=== PATIENT | female | born 1955 | race African-American/Black ===

== ENCOUNTER 2016-12-26 18:09 | Emergency (ER) | payer MEDICARE, OTHER ==
[2016-12-26 18:19] VITALS: BP 144/85
[2016-12-26] MEDS ORDERED: HYDROCODONE/ACETAMINOPHEN 5-325 MG 6 TAB/DSPK PO PRN (20:46)
[2016-12-26] MEDS ORDERED: CEPHALEXIN 500 MG CAPSULE PO ONE (20:46)
--- NOTE | 2016-12-26 20:52 | ER Document Report ---
HPI - HPI Patient complains to provider of: right foot pain Pain Level: 5 Context: 61 yo female c/o painful area on sole of right foot x several weeks. 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 Pt has been using a shoe insert as instructed by podiatry, but pain has intensified. pt reports she has had a medicated pad applied to the sore area, "something for corns". pt does not have hx/o DM. denies any trauma to foot. does not walk barefoot Associated Symptoms: None Exacerbated by: Walking Relieved by: Denies Similar symptoms previously: Yes Recently seen / treated by doctor: Yes - podiatry - ROS Systems Reviewed and Negative: Yes All other systems reviewed and negative - DERM Skin Color: Normal Past Medical History - General Information source: Patient - Social History Smoking Status: Never Smoker Frequency of alcohol use: None Drug Abuse: None Lives with: Family Family History: Reviewed & Not Pertinent - Past Medical History Cardiac Medical History: Reports: Hx Hypercholesterolemia, Hx Hypertension Endocrine Medical History: Reports: Hx Hypothyroidism Renal/ Medical History: Denies: Hx Peritoneal Dialysis Vertical Provider Document - CONSTITUTIONAL Agree With Documented VS: Yes Exam Limitations: No Limitations General Appearance: WD/WN, No Apparent Distress - INFECTION CONTROL TRAVEL OUTSIDE OF THE [place] IN LAST 30 DAYS: No - NECK Neck: Normal Inspection, Supple - RESPIRATORY Respiratory: Breath Sounds Normal, No Respiratory Distress O2 Sat by Pulse Oximetry: 99 - CARDIOVASCULAR Cardiovascular: Regular Rate, Regular Rhythm - MUSCULOSKELETAL/EXTREMETIES Musculoskeletal/Extremeties: Tender - annular hyperkerotitc lesion to right plantar lateral mid foot. very tender with palpation and any weight bearing. mild surrounding soft tissue swelling. no erythema or drainage. ? plantar wart Course - Re-evaluation Re-evalutation: 12/26/16 20:55 no sign of deep tissue infection, no circulatory compromise. pt is nt diabetic. pt is stable for discharge. pt is returning to [place] tomorrow morning. she agrees to follow up with podiatry JACQUE for further evaluation and treatment - Vital Signs Vital signs: Temp Pulse Resp BP Pulse Ox 97.8 F 77 16 144/85 H 99 12/26/16 18:16 12/26/16 18:16 12/26/16 18:16 12/26/16 18:16 12/26/16 18:16 Discharge - Discharge Clinical Impression: Right foot pain Condition: Stable Disposition: HOME, SELF-CARE Instructions: Antibiotic Therapy ([facility]), Oral Narcotic Medication ([facility]), Alberto Wrap ([facility]), Post-Op Shoe ([facility]) Additional Instructions: Take medications as prescribed Follow up with podiatry for further evaluation and treatment wear alberto and post op shoe for comfort Prescriptions: Cephalexin Monohydrate [Keflex 500 mg Capsule] 500 mg PO QID #20 capsule Hydrocodone/Acetaminophen [[place] 5-325 Tablet] 1 each PO Q4H PRN #15 tablet PRN Reason: Forms: Elevated Blood Pressure
== END 2016-12-26 21:15 | disposition home or self-care (01) ==
LOC: ER 18:09
DX: L57.0 Actinic keratosis (principal); M79.671 Pain in right foot; I10 Essential (primary) hypertension
CPT/HCPCS: 99283; A9270 ×2